=== PATIENT | female | born 1975 | race Caucasian/White ===

== ENCOUNTER 2019-06-05 08:00 | Outpatient (CLI) | payer MEDICAID ==
[~2019-06-05] VITALS: Ht 170.2 cm; Wt 93.4 kg
[~2019-06-05 08:00] MED LIST: CHLO25TA2 PO; CLON-473 PO; HYDR50CA PO; IBUP-860 PO; LORA-269 PO; OMEP20TA5 PO; POTA10TA19 PO; PRAZ5CAP PO; SUCR1TAB PO; TRAZ-256 PO; VAL5T PO; [UNRECOGNIZED DRUG - CODE] PO; albuterol 2.5 MG/3 ML nebule NEB ONE; cefazolin/dext.iso 2gm/100ml 100 ML IV ONE; famotidine 20mg tablet PO ONE; ringers solution, lacted 1,000 ML IV SCH
== END 2019-06-05 08:02 | disposition home or self-care (01) ==
LOC: PRE-OP 08:00 → EDSTATUS 06-20 07:30
PROVIDERS: ATTEND Surgery
DX: K44.9 Diaphragmatic hernia without obstruction or gangrene (principal)
CPT/HCPCS: J7120

== ENCOUNTER 2019-07-20 07:04 | Inpatient (IN) | payer MEDICAID ==
[2019-07-13 15:41] LABS: BASOPHILS % (AUTO) 0.5 % (0-1); EOSINOPHILS # (AUTO) 0.3 X10'3 (0-0.9); EOSINOPHILS % (AUTO) 4.2 % (0-6); LYMPHOCYTES # (AUTO) 2.5 X10'3 (1.1-4.8); LYMPHOCYTES % (AUTO) 34.2 % (21-51); MEAN CORPUSCULAR HEMOGLOBIN 28.6 PG (27.0-31.0); MEAN CORPUSCULAR HGB CONC 33.1 g/dL (33.0-36.5); MEAN CORPUSCULAR VOLUME 86.3 FL (78-98); MEAN PLATELET VOLUME 7.4 FL (7.4-10.4); MONOCYTES # (AUTO) 0.4 X10'3 (0-0.9); MONOCYTES % (AUTO) 4.8 % (2-12); NEUTROPHILS # (AUTO) 4.2 X10'3 (1.8-7.7); NEUTROPHILS % (AUTO) 56.3 % (42-75); PRE OP HEMATOCRIT 43.7 % (35.0-45.0); PRE OP HEMOGLOBIN 14.5 g/dL (12.0-16.0); PRE OP PLATELET COUNT 285 X10'3 (140-440); RED BLOOD COUNT 5.06 X10'6 (4.20-5.60); RED CELL DISTRIBUTION WIDTH 14.8 % (11.5-14.5)
[2019-07-13 16:01] LABS: ALBUMIN 3.7 G/DL (3.4-5.0); ALBUMIN/GLOBULIN RATIO 1.1 (1.1-1.5); ALKALINE PHOSPHATASE 80 IU/L (46-116); BLOOD UREA NITROGEN 8 MG/DL (7-18); BUN/CREATININE RATIO 11.9 (6.6-38.0); CALCIUM 8.8 MG/DL (8.5-10.1); CHLORIDE 104 MMOL/L (99-107); CREATININE 0.67 MG/DL (0.40-0.90); PRE OP ALT 30 U/L (30-65); PRE OP ANION GAP 8 (8-16); PRE OP AST 18 U/L (10-37); PRE OP BILIRUB, TOTAL 0.2 MG/DL (0.0-1.0); PRE OP GLUCOSE 131 MG/DL (70-104); PRE OP SODIUM 139 MMOL/L (135-145); TOTAL CARBON DIOXIDE 26.6 MMOL/L (24-32); TOTAL PROTEIN 7.1 G/DL (6.4-8.2); eGFR > 90 ML/MIN
[2019-07-20] VITALS (10 sets, daily range): BP systolic 109–177; BP diastolic 78–108
[~2019-07-20] VITALS: Ht 170.2 cm; Wt 99.8 kg
[~2019-07-20 07:04] MED LIST changes: +BUPIVACAINE liposomal/PF 13.3 MG/ML vial IM ONE; +BUPIVAcaine/PF 2.5 mg/ml (0.25%) 30ml vial ONE; +BUPIVAcaine/PF 2.5mg/ml (0.25%) 10ml vial ONE; -CHLO25TA2 PO; +GABA300C PO; -IBUP-860 PO; +LIDOcaine 1% 30ml preserv. free vial ONE; -SUCR1TAB PO; -albuterol 2.5 MG/3 ML nebule NEB ONE; +ceFAZolin 2gm in dextrose, iso 50 ML IV ONE; -cefazolin/dext.iso 2gm/100ml 100 ML IV ONE
[2019-07-20] MEDS ORDERED: fentaNYL/PF 50MCG/1 ML 2ML syringe IV PRN ×2 (07:15)
[2019-07-20] MEDS ORDERED: hydrALAZINE 20mg/ml inj. IV PRN (07:15)
[2019-07-20] MEDS ORDERED: morphine 2 MG/ML inj. syringe IV PRN (07:15)
[2019-07-20] MEDS ORDERED: ondansetron/PF 4mg/2ml inj IV PRN ×2 (07:15→11:35)
[2019-07-20] MEDS ORDERED: ringers solution, lacted 1,000 ML IV SCH (07:15)
[2019-07-20] MEDS ORDERED: MIDAZolam 5mg/ml 2ml vial IV PRN (07:50)
[2019-07-20] MEDS ORDERED: sevoflurane 250ml liquid IH ONE (09:22)
[2019-07-20] MEDS ORDERED: dexamethasone sod phosphate 10mg/ml inj ONE (09:22)
--- NOTE | 2019-07-20 09:24 | NUR ---
RT paged at 0747 for tx in rm 247A, RT arrived at 0750 to give tx. Reported to RN that there was no order for the svn tx. RN called pharmacy re faxed orders and asked that svn tx be put in. I waited for 5 minutes for order to pop up before stating i would be back when order came through. Order not put in until 904. SVN tx was then given. Addendum: 07/20/19 at 09 by Melony Machuca RT Amended: Links added.
[2019-07-20] MEDS ORDERED: midazolam 2 mg/2 ml injection ONE ×2 (09:25)
[2019-07-20] MEDS ORDERED: propofol inj 20 ML IV ONE (09:25)
[2019-07-20] MEDS ORDERED: LIDOcaine 2% (20mg/ml) 5ml vial ONE (09:25)
[2019-07-20] MEDS ORDERED: fentaNYL/PF 50MCG/1 ML 2ML syringe ONE (09:25)
[2019-07-20] MEDS ORDERED: rocuronium 10mg/ml inj IV ONE ×2 (09:26→10:59)
[2019-07-20] MEDS ORDERED: ondansetron/PF 4mg/2ml inj ONE (09:38)
[2019-07-20] MEDS ORDERED: glycopyrrolate 0.2mg/ml inj ONE (09:38)
[2019-07-20] MEDS ORDERED: labetalol 20mg/4ml (5mg/ml) syringe IV ONE (10:02)
[2019-07-20] MEDS ORDERED: naloxone 0.4 mg/ml inj IV PRN (11:35)
[2019-07-20] MEDS ORDERED: CADD PCA waste documentation MC PRN (11:35)
--- NOTE | 2019-07-20 11:36 | NUR ---
Received from OR via SURGICAL BED , accompanied by Anesthesiologist OFELIA and report given by Anesthesiolgist. PATIENT WITH 20G PIV IN LEFT UE RUNNING LR AT 100. PATIENT MEDICATED FOR PAIN AND NAUSEA UPON ARRIVAL . MINIMAL EMEMSIS PRESENT. PATIENT WITH 10L MASK ON WITH 99% SATURATIONS. 4 ABDOMINAL LAP SITES PRESENT AND CDI. NO DRESSING Addendum: 07/20/19 at 1154 by Gab Gonzalez RN, RN Amended: Links added.
[2019-07-20] MEDS ORDERED: LORazepam 0.5 MG tablet PO PRN (11:40)
[2019-07-20] MEDS: morphine 4 MG/ML inj SYRINge IV PRN ×2 (11:40→11:57)
[2019-07-20] MEDS ORDERED: hydrOXYzine 25 MG tablet PO PRN (11:55)
[2019-07-20] MEDS ORDERED: cloNIDine 0.1 mg tablet PO SCH (12:00)
[2019-07-20] MEDS: labetalol 20mg/4ml (5mg/ml) syringe IV PRN ×2 (12:03→12:22)
[2019-07-20] MEDS: HYDROmorphone/NS 1 mg/ml CADD 50 ML IV SCH ×7 (12:27→23:00)
--- NOTE | 2019-07-20 12:35 | NUR ---
Patient in room PAS IN 900. I have received report from NARCISA De Guzman and had the opportunity to ask questions and assume patient care.
--- NOTE | 2019-07-20 12:46 | NUR ---
Patient has met criteria for transfer to floor. Patient vss. Pain at a tolerable level. Transferred via bed to room where they were hooked to vitals and RN notified patient has arrived. Bed low, call light within reach, 2-3 rails up, vss, belongings placed in room. Care turned over to NARCISA ORTIZ. NOTIFIED RN PATIENT HAS ARRIVED. Addendum: 07/20/19 at 1309 by Gab Alicea - NARCISA RN Amended: Links added.
[2019-07-20] MEDS: gabapentin 300mg capsule PO SCH ×2 (14:15→21:00)
[2019-07-20] MEDS ORDERED: normal saline 1000ml 1,000 ML IV SCH (15:10)
[2019-07-20] MEDS: ceFAZolin inj. 1,000 MG in dextrose 5%-water 50ml 50 ML IV SCH (16:44)
--- NOTE | 2019-07-20 18:43 | NUR ---
Problems reprioritized. Patient report given, questions answered & plan of care reviewed with [place]. Pt resting comfortably, up to commode x3. Tolearated Liquids well. NO c/o nausea or discomfort. Laps sites clean and intact.
--- NOTE | 2019-07-20 18:49 | NUR ---
Patient in room CODEY 346. I have received report from Muriel BREWSTER and had the opportunity to ask questions and assume patient care.
[2019-07-20] MEDS ORDERED: diazepam 5mg tablet PO SCH (21:00)
[2019-07-20] MEDS ORDERED: traZODone 150mg tablet PO SCH (21:00)
[2019-07-20] MEDS ORDERED: prazosin 5mg capsule PO SCH (21:00)
[2019-07-21] VITALS: BP 133/50
[2019-07-21] MEDS: ceFAZolin inj. 1,000 MG in dextrose 5%-water 50ml 50 ML IV SCH ×2 (00:40→08:18)
[2019-07-21] MEDS: HYDROmorphone/NS 1 mg/ml CADD 50 ML IV SCH ×3 (01:00→05:00)
--- NOTE | 2019-07-21 01:00 | NUR ---
Patient took one mini-press only. Refused second pill.
[2019-07-21] MEDS ORDERED: albuterol 2.5 MG/3 ML nebule NEB ONE (05:30)
--- NOTE | 2019-07-21 06:49 | NUR ---
Patient in room CODEY 346. I have received report from NARCISA Longoria and had the opportunity to ask questions and assume patient care.
[2019-07-21] MEDS ORDERED: pantoprazole 40mg Tablet.DR PO SCH (07:30)
[2019-07-21 08:00] VITALS: BP 123/72
[2019-07-21] MEDS ORDERED: oxyCODONE/APAP 5-325mg tablet PO PRN ×2 (08:00)
[2019-07-21] MEDS: gabapentin 300mg capsule PO SCH (08:18)
[2019-07-21] MEDS ORDERED: PER5325T PO (10:10)
--- NOTE | 2019-07-21 12:14 | NUR ---
Pt D/C'd home per Dr Lozano in stable condition. PIV and Tele removed. medication and discharge instruction given to pt. No c/o pain or abdominal discomfort. Pt was escorted to main lobby on w/c. left the hospital via private vehicle accompanied by family.
== END 2019-07-21 11:40 | disposition home or self-care (01) | DRG 220 ==
LOC: PAS IN 07:04 → EDSTATUS 09:00 → SUR 3N 14:00
PROVIDERS: ADMIT Surgery; ATTEND Surgery
PROC: 8E0W4CZ Robotic Assisted Procedure of Trunk Region, Percutaneous Endoscopic Approach (ICD-10-PCS; 2019-07-20)
PROC: 0BUT4JZ Supplement Diaphragm with Synthetic Substitute, Percutaneous Endoscopic Approach (ICD-10-PCS; principal; 2019-07-20 09:22)
DX: K44.9 Diaphragmatic hernia without obstruction or gangrene (principal); F17.210 Nicotine dependence, cigarettes, uncomplicated; F41.8 Other specified anxiety disorders; F43.10 Post-traumatic stress disorder, unspecified; K21.9 Gastro-esophageal reflux disease without esophagitis; I10 Essential (primary) hypertension; Z98.51 Tubal ligation status; Z90.710 Acquired absence of both cervix and uterus; Z88.8 Allergy status to other drugs, medicaments and biological substances; Z79.899 Other long term (current) drug therapy
CPT/HCPCS: 36415; 71045; 80053; 82948; 85025; 86885; 86900; 86901; 87081; 87635; 93005; 94640; 94760; A4215; A4618; A6258; C1758; C1781; C9290; G0378; J0690; J1100; J1170; J2001; J2250; J2270; J2405; J2704; J3010; J3490; J7030; J7060; J7120

== ENCOUNTER 2020-05-07 09:13 | Day surgery (SDC) | payer MEDICAID ==
[~2020-05-07] VITALS: Ht 172.7 cm; Wt 95.5 kg
[~2020-05-07 09:13] MED LIST changes: -BUPIVACAINE liposomal/PF 13.3 MG/ML vial IM ONE; -BUPIVAcaine/PF 2.5 mg/ml (0.25%) 30ml vial ONE; -BUPIVAcaine/PF 2.5mg/ml (0.25%) 10ml vial ONE; +DIAZ5TAB22 PO; -LIDOcaine 1% 30ml preserv. free vial ONE; +PER5325T PO; -VAL5T PO; -ceFAZolin 2gm in dextrose, iso 50 ML IV ONE; -famotidine 20mg tablet PO ONE; -ringers solution, lacted 1,000 ML IV SCH
[2020-05-07 09:24] VITALS: BP 138/94
[2020-05-07] MEDS ORDERED: HYOS-13 PO (09:46)
[2020-05-07] MEDS ORDERED: TOPI25TA49 PO (09:47)
[2020-05-07] MEDS ORDERED: GABA300C PO (09:47)
[2020-05-07] MEDS ORDERED: OMEP20TA23 PO (09:48)
[2020-05-07] MEDS ORDERED: PRAZ5CAP PO (09:49)
[2020-05-07] MEDS ORDERED: TRAZ300T2 PO (09:50)
[2020-05-07] MEDS ORDERED: POTA10CA44 PO (09:50)
[2020-05-07] MEDS ORDERED: TIZA4CAP PO (09:51)
[2020-05-07] MEDS ORDERED: DIAZ10TA4 PO (09:51)
[2020-05-07] MEDS ORDERED: IBUP-1984 PO (09:52)
[2020-05-07] MEDS ORDERED: fentaNYL/PF 50MCG/1 ML 2ML syringe ONE ×2 (10:12→10:58)
[2020-05-07] MEDS ORDERED: LIDOcaine Viscous 15ml cup ONE (10:12)
[2020-05-07] MEDS ORDERED: MIDAZolam 1 MG/ML 5ML VIAL ONE ×2 (10:12→10:58)
[2020-05-07 11:16] VITALS: BP 88/55
[2020-05-07 11:26] VITALS: BP 108/77
[2020-05-07 11:36] VITALS: BP 112/76
[2020-05-07 11:46] VITALS: BP 127/96
== END 2020-05-07 12:05 | disposition home or self-care (01) ==
LOC: GI LAB 09:13
PROVIDERS: ATTEND Internal Medicine Gastroenterology
DX: R10.9 Unspecified abdominal pain (principal); K52.9 Noninfective gastroenteritis and colitis, unspecified; K21.9 Gastro-esophageal reflux disease without esophagitis; K57.30 Diverticulosis of large intestine without perforation or abscess without bleeding; K64.8 Other hemorrhoids; K44.9 Diaphragmatic hernia without obstruction or gangrene; K31.89 Other diseases of stomach and duodenum; F17.210 Nicotine dependence, cigarettes, uncomplicated; Z88.8 Allergy status to other drugs, medicaments and biological substances; Z79.899 Other long term (current) drug therapy
CPT/HCPCS: 43239; 45380; 99152; 99153; J2250; J3010; J7040; A4620

== ENCOUNTER 2024-09-06 20:22 | Inpatient (IN) | payer MEDICAID ==
[~2024-09-06] VITALS: Ht 170.2 cm; Wt 93.2 kg
[~2024-09-06 20:22] MED LIST changes: -CLON-473 PO; +DIAZ10TA4 PO; -DIAZ5TAB22 PO; -HYDR50CA PO; +HYOS-13 PO; +IBUP-1984 PO; -LORA-269 PO; +OMEP20TA23 PO; -OMEP20TA5 PO; -PER5325T PO; +POTA10CA95 PO; -POTA10TA19 PO; +TIZA4CAP PO; +TOPI-255 PO; -TRAZ-256 PO; +TRAZ300T2 PO; -[UNRECOGNIZED DRUG - CODE] PO
[2024-09-06] MEDS ORDERED: heparin 10,000 units/1 ML INJ IV ONE (21:05)
[2024-09-06] MEDS ORDERED: heparin 10,000 units/1 ML INJ IV PRN (21:05)
[2024-09-06 21:15] LABS: MEAN PLATELET VOLUME 7.2 FL (7.4-10.4); RED CELL DISTRIBUTION WIDTH 14.4 % (11.5-14.5)
[2024-09-06] MEDS: hydrALAZINE 20mg/ml inj. IV ONE (21:16)
[2024-09-06] MEDS: heparin 25,000 UNIT/250ml bag 250 ML IV PRN (21:20)
[2024-09-06 21:25] LABS: CREATININE 2.27 MG/DL (0.40-0.90); TOTAL CARBON DIOXIDE 23.6 MMOL/L (24-32); eCRCL 29 ML/MIN; eGFR 23 ML/MIN
[2024-09-06 21:29] LABS: APTT 69 SECONDS (22-32); INR 1.1 INR
--- NOTE | 2024-09-06 21:36 | Physician Documentation ---
History of Present Illness ~ Chief Complaint: Chest Pain Stated Complaint: NSTEMI Time Seen by MD: 21:03 Mode of Arrival: EMS HPI Patient presents to the emergency room as a transfer from [facility] for NSTEMI. She is on a heparin drip. Patient has been experiencing vomiting over the past few days and went to the emergency room two days ago and evaluated at that time with negative troponins for nausea and vomiting. She had one day of no nausea or vomiting then returned to the emergency room today for continued vomiting. She endorse chest pain today and troponin ended up being mildly positive. Patient does endorse cannabis use. Haldol administered with the fact however she continues to have some nausea here in the emergency room. She was also found to be in acute kidney injury Medication Reconciliation Allergies: Coded Allergies: niacin (Unverified Allergy, Severe, THROAT CLOSES, 05/15/19) indomethacin (Unverified Adverse Reaction, Intermediate, MIGRAINE, 05/15/19) Scheduled Diazepam (Diazepam), 1 TAB PO QHS, (Reported) Gabapentin (Neurontin), 1 CAP PO Q8H, (Reported) Hyoscyamine Sulfate (Hyoscyamine Sulfate), 2-Chaz TAB PO Q4H, (Reported) Omeprazole Magnesium (Prilosec Otc), 40 MG PO DAILY, (Reported) Potassium Chloride* (Potassium Chloride*), 1 CAP PO DAILY, (Reported) Prazosin Hcl (Minipress), 6 MG PO HS, (Reported) Tizanidine Hcl (Zanaflex), 1 CAP PO QHS, (Reported) Topiramate (Topiramate), 1 TAB PO TID, (Reported) Trazodone HCl (Trazodone HCl), 1 TAB PO HS, (Reported) Miscellaneous Medications Ibuprofen* (Motrin*), 1 TAB PO, (Reported) Review of Systems ROS All review of systems negative except as per HPI Physical Exam Vital Signs: Temperature: 98.6, Source: Oral, Heart Rate: 78, Respiratory Rate: 18, BP: 196/110, Pulse Oximetry: 95, Weight: 93.180 Physical Exam General: Patient is awake, alert, oriented x4 in no acute distress Head: Normocephalic and atraumatic. Eyes: Conjunctival normal. EOMI. PERRL. ENT: Mucous membranes moist. Neck: Supple, trachea is midline. Chest: Clear to auscultation bilaterally without rales, rhonchi, or wheezes. There is no accessory muscle use or retractions. Cardiac: RRR without murmurs, gallops, or rubs. Abd: Soft, nondistended, nontender, with normoactive bowel sounds. No guarding, rebound, or rigidity. Extremities: Normal strength. Normal range of motion. No deformities or edema. No calf tenderness to palpation Progress Results/Orders Results/Orders Orders - RIVERA THEODORE MD Heparin 25,000 Unit/250ml Bag (Heparin 2 (09/06/24 21:05) Heparin 10,000 Unit/Ml 1ml (Heparin 10,0 (09/06/24 21:05) Cbc/Diff (09/07/24 03:00) Cbc/Diff (09/08/24 03:00) Cbc/Diff (09/09/24 03:00) Cbc/Diff (09/10/24 03:00) Cbc/Diff (09/11/24 03:00) Cardiac Ptt (09/07/24 01:15) Page Hospitalist (09/06/24 21:47) Fill Out Med Reconciliation (09/06/24 21:47) Lorazepam Inj (Ativan Inj) (09/06/24 21:55) Ondansetron Inj. (Zofran 4mg/2ml Vial) (09/06/24 21:55) Completed Orders - RIVERA THEODORE MD Pt Inr (09/06/24 21:03) PTT (09/06/24 21:03) Cbc/Diff (09/06/24 21:03) BMP (09/06/24 21:05) Hs Troponin I W Calculations (09/06/24 21:05) Hydralazine Inj. (Apresoline Inj.) (09/06/24 21:10) Message To Nursing (09/06/24 21:15) Medications Received in ER Medications (Trade) Dose Ordered Sig/Kyrie Route PRN Reason Start Time Stop Time Status Last Admin Dose Admin Heparin Sodium/ Dextrose 250 ml @ 10 mls/hr Q25H PRN IV TO MAINTAIN PTT WITHIN RANGE 09/06/24 21:05 09/06/24 21:20 10 MLS/HR (Apresoline inj.) 10 mg ONCE ONCE IV 09/06/24 21:10 09/06/24 21:11 DC 09/06/24 21:16 10 MG Vital Signs 09/06/24 09/06/24 09/06/24 20:38 20:49 21:16 Temp 98.6 Pulse 79 78 Resp 20 18 B/P (MAP) 182/110 Pulse Ox 95 Laboratory Tests Test 09/06/24 21:10 White Blood Count 13.6 H Red Blood Count 5.42 Hemoglobin 15.4 Hematocrit 44.7 Mean Corpuscular Volume 82.5 Mean Corpuscular Hemoglobin 28.4 Mean Corpuscular Hemoglobin Concent 34.4 Red Cell Distribution Width 14.4 Platelet Count 336 Mean Platelet Volume 7.2 L Neutrophils (%) (Auto) 87.6 H Lymphocytes (%) (Auto) 9.1 L Monocytes (%) (Auto) 3.0 Eosinophils (%) (Auto) 0 Basophils (%) (Auto) 0.3 Neutrophils # (Auto) 11.9 H Lymphocytes # (Auto) 1.2 Monocytes # (Auto) 0.4 Eosinophils # (Auto) 0.0 Basophils # (Auto) 0.0 CBC Comment Prothrombin Time 11.2 INR International Normalized Ratio 1.1 Activated Partial Thromboplast Time 69 H Coagulation Comments Sodium Level 137 Potassium Level 3.3 L Chloride Level 101 Carbon Dioxide Level 23.6 L Anion Gap 12 Blood Urea Nitrogen 32 H Creatinine 2.27 H Estimated GFR/1.73 m2 23 BUN/Creatinine Ratio 14.1 Glucose Level 144 H Calcium Level 8.5 Troponin I High Sensitivity 944 *H Albumin 4.3 Chemistry Comments EKG/XRAY/CT/US/VASC/MRI EKG : Additional Comment EKG interpreted by myself shows time of 2027, rate 80, sinus rhythm, normal axis, no ST changes Medical Decision Making Findings Patient presented to the emergency room as transfer from alternative facility for NSTEMI on heparin drip. Patient also found to be in renal failure. Significant nausea and vomiting over the past few days. Consideration of cyclic vomiting syndrome. She continues to have some nausea. Fluid resuscitation has been implemented. We will admit for continued treatment and possible intervention. Differential Dx:Considerations: Include: angina, aortic dissection, chest wall pain, CHF, costochondritis, esophageal reflux/spasm, myocardial infarction, pericarditis Departure Admitted to Inpatient Unit: yes, to hospitalist Impression: Primary Impression: NSTEMI (non-ST elevated myocardial infarction) Additional Impressions: Uncontrolled hypertension Vomiting Acute kidney injury Condition: Guarded Referrals: NO PRIMARY CARE PROVIDER (PCP) Critical Care Note Total Time (mins): 45 Critical Care Note The very real possibility of a deterioration of this patient's condition required the highest level of my preparedness for sudden, emergent intervention. I provided critical care services, which included medication orders, frequent reevaluations of the patient's condition and response to treatment, ordering and reviewing test results, and discussing the case with various consultants. Excludes time spent performing separately billable procedures. The critical care time associated with the care of the patient was 45 minutes not counting procedures Signature Scribe Signature: No scribe Attestation: The note accurately reflects work and decisions made by me.Rivera Theodore MD 09/06/24 21:47 RIVERA THEODORE MD Sep 06, 2024 21:35
[2024-09-06] MEDS: MESSAGE TO NURSING IV ONE (22:10)
[2024-09-06] MEDS: ondansetron/PF 4mg/2ml inj IV ONE (22:13)
[2024-09-07] VITALS (9 sets, daily range): BP systolic 97–169; BP diastolic 59–100; PULSE 81–103; RESP 16–24; TEMP 97.1–98.2; O2SAT 94–98
[2024-09-07] MEDS ORDERED: mag hydrox/Alum hydrox/simeth 30ml oral suspension PO PRN (00:50)
[2024-09-07] MEDS ORDERED: HYDROcodone/acetaminophen 10/325mg tab PO PRN (00:50)
[2024-09-07] MEDS: normal saline 1000ml 1,000 ML IV SCH (00:50)
[2024-09-07] MEDS ORDERED: magnesium sulf-water 2g/50mL 50 ML IV PRN (00:50)
[2024-09-07] MEDS ORDERED: magnesium sulf-water 4G/100mL 100 ML IV PRN (00:50)
[2024-09-07] MEDS ORDERED: magnesium Cl slow-release 64mg tablet PO PRN (00:50)
[2024-09-07] MEDS ORDERED: potassium Cl 40MEQ/1/2NS 520ml 520 ML IV PRN (00:50)
--- NOTE | 2024-09-07 01:19 | HISTORY AND PHYSICAL-Residence ---
History & Physical Providers to CC Resident Creating Document: IRENE SANDOVAL RES ~ History of Present Illness Reason for Admit\Complaint: nstemi History of Present Illness Attestation I agree with the residents assessment and plan as below: Plan: continue dual antiplatelet therapy continue heparin infusion trend trop low dose metoprolol cardiology consultation CCT 55 min using HIPPA compliant A/V technology 48-year-old female with a history of fibromyalgia, PTSD, irritable bowel syndrome his transfers from [facility] for further management of NSTEMI. She complains of nausea and vomiting since Wednesday. She is unable to keep anything down due to the vomiting. Also has associated chest pain, diarrhea, chills, dizziness, palpitations since earlier today. Retrosternal chest pain radiating to the entire chest, and her back. Cramping type of pain 7/10 in intensity. States nausea and vomiting better now. Stopped smoking three years ago and last drink was in March 2024. Uses edibles for fibromyalgia pain. Lives with her boyfriend in [place]. Follows up with PCP Dr. 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 Discussed advanced care directives and she wishes to be a full code. Allergies: Coded Allergies: niacin (Unverified Allergy, Severe, THROAT CLOSES, 05/15/19) indomethacin (Unverified Adverse Reaction, Intermediate, MIGRAINE, 05/15/19) Home Medications Home Medications Active Reported Motrin* (Ibuprofen) 400 Mg Tablet 1 Tab PO 5 Days Zanaflex (Tizanidine HCl) 4 Mg Capsule 1 Cap PO QHS Diazepam 10 Mg Tablet 1 Tab PO QHS Potassium Chloride* (Potassium Chloride) 10 Meq Capsule.sa 1 Cap PO DAILY Trazodone HCl 300 Mg Tablet 1 Tab PO HS Minipress (Prazosin Hcl) 5 Mg Capsule 6 Mg PO HS Prilosec Otc (Omeprazole Magnesium) 20 Mg Tablet.dr 40 Mg PO DAILY Topiramate 25 Mg Tablet 1 Tab PO TID Neurontin (Gabapentin) 300 Mg Capsule 1 Cap PO Q8H Hyoscyamine Sulfate 0.125 Mg Tab.rapdis 2-Chaz Tab PO Q4H Past Medical History Past Medical History Fibromyalgia PTSD Depression Irritable bowel Past Surgical History Surgical History Comment section Hysterectomy Bladder lift Morgagni hernia repair ROS ROS Reviewed in full. All negative except for pertinent positive HPI. Exam Vitals: Vital Signs Date Time Temp Pulse Resp B/P (MAP) Pulse Ox O2 Delivery O2 Flow Rate FiO2 09/06/24 23:00 96 20 161/92 (115) 97 09/06/24 21:30 98.6 General: General: Awake and Alert, mild acute distress. HEENT: Face is flushed, Conjunctiva pink, Sclera clear, Mucus Membranes dry Neck: Supple without masses and tenderness. Resp: Unlabored. Equal breath sounds bilaterally. Heart: Regular rhythm, normal S1 and S2, no rub, murmur or gallop. Abdomen: Soft and non tender no organomegaly. Normal bowel sounds x4 quadrant normoactive. No guarding or rigidity. Extremities: Normal ROM, no swelling, nontender. No cyanosis,clubbing or edema. 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 Skin: Warm and Dry. Diagnostic Data Last Recorded Lab Results: 09/06/[id number]/06/[id number] Diagnostic Data: Laboratory Tests Test 09/06/24 21:10 Prothrombin Time 11.2 SECONDS (9.0-12.0) INR International Normalized Ratio 1.1 INR Activated Partial Thromboplast Time 69 SECONDS (22-32) H Coagulation Comments Advance Care Planning Advanced Care plannin - 30 Minutes Additional Plan 48-year-old female with a history of fibromyalgia, PTSD, irritable bowel syndrome his transfers from [facility] for further management of NSTEMI. NSTEMI EKG: No ST/T-wave changes Patient complains of retrosternal cramping type of chest pain 7/10 in intensity Elevated troponins, 944, follow up with troponin trend On the heparin drip times 48 hours Blood pressures have been high, started metoprolol succinate 25 p.o. daily Started aspirin and statin, Follow up with A1c, lipid panel, procalcitonin, echo Consider cardiology consult in a.m. MATT Dehydration secondary to nausea and vomiting Follow up with UA Continue IV fluid resuscitation NS at 100 mL/hour Hypokalemia, replacement per protocol History of fibromyalgia History of PTSD History of depression History of irritable bowel Awaiting med rec Code Status: Full code DVT prophylaxis: Heparin Analgesia/sedation: Morphine/[place] Line/tube: PIV GI prophylaxis: None Nutrition: Heart healthy Prognosis: Guarded Disposition: Continue medical management. Irene Sandoval MD. IM Resident PGY-3 Date of Service: Sep 07, 2024 Billing Provider: CAITIE STEVENSON MD, ELIZABETH, RES Sep 07, 2024 01:19 CAITIE STEVENSON MD Sep 07, 2024 05:01
[2024-09-07 01:50] LABS: MEAN PLATELET VOLUME 7.6 FL (7.4-10.4); RED CELL DISTRIBUTION WIDTH 14.3 % (11.5-14.5)
[2024-09-07 02:12] LABS: PRO BRAIN NATRIURETIC PEPTIDE 2266.0 PG/ML (0-125)
[2024-09-07] MEDS ORDERED: heparin 25,000 UNIT/250ml bag 250 ML IV PRN (02:40)
[2024-09-07] MEDS: metoprolol succinate 25mg (24-HOUR) SR. Tablet PO SCH (02:42)
[2024-09-07] MEDS: heparin, porcine 5000 units/ml vial IV ONE (02:42)
[2024-09-07] MEDS: aspirin 81mg, enteric-coated 1 TAB TABLET.DR PO SCH (02:52)
[2024-09-07] MEDS: hydrALAZINE 20mg/ml inj. IV PRN (05:33)
--- NOTE | 2024-09-07 06:07 | ELECTROCARDIOGRAPH REPORT ---
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
[2024-09-07] MEDS: K and/or MAG REPLACEMENT MC SCH (08:16)
[2024-09-07] MEDS: ondansetron/PF 4mg/2ml inj IV PRN (08:23)
[2024-09-07] MEDS: PERFLUTREN PROTEIN-A MICROSPHR (Optison) 0.22 MG/ML 3ML VIAL IV ONE (10:45)
[2024-09-07] MEDS: potassium Cl 20 mEq SR tablet PO PRN (11:02)
[2024-09-07] MEDS: heparin 10,000 units/1 ML INJ IV PRN (12:02)
[2024-09-07] MEDS: MESSAGE TO NURSING IV ONE ×3 (12:12→23:35)
[2024-09-07 15:29] LABS: LEUKOCYTE ESTERASE ,URINE SMALL (Neg); NITRITES, URINE NEGATIVE (Neg); OCCULT BLOOD,URINE TRACE-INTACT (Neg)
[2024-09-07 15:36] LABS: UA COLLECTION TYPE OTHER
[2024-09-07 15:37] LABS: SQUAMOUS EPITHELIAL CELL,UR MODERATE /LPF (FEW)
[2024-09-07 15:38] LABS: WBC CLUMPS,URINE FEW /HPF (NEGATIVE)
[2024-09-07 15:47] LABS: URINE AMPHETAMINE SCREEN NEGATIVE (Neg); URINE BARBITUATE SCREEN NEGATIVE (Neg); URINE BENZODIAZEPINES SCREEN POSITIVE (Neg); URINE CANNABINOID SCREEN POSITIVE (Neg); URINE COCAINE SCREEN NEGATIVE (Neg); URINE METHADONE SCREEN NEGATIVE (Neg); URINE OPIATE SCREEN POSITIVE (Neg); URINE PHENCYCLIDINE SCREEN NEGATIVE (Neg)
[2024-09-07 16:50] LABS: APTT > 139 SECONDS (22-32)
[2024-09-07 17:13] LABS: HCG SERUM QL NEGATIVE
--- NOTE | 2024-09-07 18:40 | CONSULTATION REPORT ---
Cardiac Consultation Report Providers to CC ~ Subjective Subjective Cardiology consultation: 48-year-old female was transferred here for recurrent nausea and vomiting and minimal troponin rise. Troponins have remained stable around 0.6. He is asymptomatic on heparin infusion. Tox screen was positive for opiates. I noticed that her creatinine is 2.27 and she tells me that she has trialed [facility]cutt kidney under development as her mother was drug addicted. She denies any angina pectoris. Medications include diazepam Neurontin which she no longer takes hi Ios hyoscyamine Prilosec potassium chloride prazosin tizanidine topiramate trazodone summary switch to Cymbalta. Allergies niacin and indomethacin. Objective Vitals Vital Signs Date Time Temp Pulse Resp B/P (MAP) Pulse Ox O2 Delivery O2 Flow Rate FiO2 09/07/24 15:00 98.0 85 18 145/96 (112) 95 Room Air Lab Results: 09/07/24 0115 09/07/24 0115 Objective Carotid no bruit chest clear to auscultation percussion heart no murmur or S3 gallop no rub abdomen active bowel sounds no bruits pulses plus two upper and lower extremities. Oriented cooperative. Coagulation Studies Laboratory Tests Test 09/06/24 21:10 09/07/24 09:08 09/07/24 15:45 Prothrombin Time 11.2 SECONDS (9.0-12.0) INR International Normalized Ratio 1.1 INR APTT (Heparin Protocol) 27 SECONDS (45-60) L Activated Partial Thromboplast Time > 139 SECONDS (22-32) *H Coagulation Comments Other Results Electrocardiogram minor nonspecific ST-T changes. White blood count elevated 9[address]01 potassium low at 3.1. Problem\Assessment\Plan Additional Plan Impression nausea vomiting recurrent of indeterminate etiology no angina. Minimal troponin rise. Leukocytosis hypokalemia. Chronic renal insufficiency creatinine 2.27 at least stage IV perhaps stage 5 chronic kidney disease without any evaluation or follow-up. Recommendation 1. Discontinue heparin and observe 2. Echocardiography . I was told it was ordered not yet performed 3. Lexiscan to evaluate for ischemia 4. Continue home psychotropic medications pain medications control blood pressure at beta-michael as needed. 5. Ambulate freely and hallway. Comment: If has reversible ischemia then it is not unreasonable to perform diagnostic coronary angiography and take the risk of acute renal failure with possible chronic renal failure in view of her abnormal kidney function. Since she is in the hospital she should at least have a renal ultrasound and if available a renal consultation she claims she has never had one CARLOS DANG MD Sep 07, 2024 18:40
[2024-09-07] MEDS ORDERED: metoprolol tartrate 1mg/ml inj IV PRN (18:50)
[2024-09-07] MEDS: prazosin 5mg capsule PO SCH (21:49)
--- NOTE | 2024-09-07 21:50 | PROGRESS NOTE- Residence ---
Progress Note - Resident Providers to CC Resident Creating Document: ELVIRA JUÁREZ RES ~ Antibiotic Timeout Antibiotic Ordered?: Yes Subjective This is a 48-year-old female with a history of fibromyalgia, PTSD, irritable bowel syndrome transfered from [facility] for further management of NSTEMI. Retrosternal chest pain radiating to the entire chest, and her back. Cramping type of pain 7/10 in intensity. She complains of nausea and vomiting since Wednesday. Also has associated chest pain, diarrhea, chills, dizziness, palpitations since earlier today. Follows up with PCP Dr. 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 Objective Vital Signs Date Time Temp Pulse Resp B/P (MAP) Pulse Ox O2 Delivery O2 Flow Rate FiO2 09/07/24 15:00 98.0 85 18 145/96 (112) 95 Room Air General: Awake and Alert, mild acute distress. HEENT: Face is flushed, Conjunctiva pink, Sclera clear, Mucus Membranes dry Neck: Supple without masses and tenderness. Resp: Unlabored. Equal breath sounds bilaterally. Heart: Regular rhythm, normal S1 and S2, no rub, murmur or gallop. Abdomen: Soft and non tender no organomegaly. Normal bowel sounds x4 quadrant normoactive. No guarding or rigidity. Extremities: Normal ROM, no swelling, nontender. No cyanosis,clubbing or edema. 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 Skin: Warm and Dry. Result Diagram: 09/07/24 0115 09/07/24 0115 Coagulation Studies Laboratory Tests Test 09/06/24 21:10 09/07/24 09:08 09/07/24 15:45 Prothrombin Time 11.2 SECONDS (9.0-12.0) INR International Normalized Ratio 1.1 INR APTT (Heparin Protocol) 27 SECONDS (45-60) L Activated Partial Thromboplast Time > 139 SECONDS (22-32) *H Coagulation Comments Assessment Assessment This is a 48-year-old female with a history of fibromyalgia, PTSD, irritable bowel syndrome transfered from [facility] for further management of NSTEMI. Plan Plan NSTEMI EKG: No ST/T-wave changes Patient complains of retrosternal cramping type of chest pain 7/10 in intensity Elevated troponins, 944, continue trending down and is in the 500s now Patient continues to be on her heparin drip. Blood pressures have been high, started metoprolol succinate 25 p.o. daily Started the patient on aspirin and statin, Echo has been ordered. MATT, undiagnosed CKD? Dehydration secondary to nausea and vomiting Patient's creatinine is 2.27, her baseline is unknown Ordered urine osmolality, serum osmolality ,urine sodium and urine urea Ordered ultrasound abdomen for the patient to reviewed. We will continue fluid resuscitation NS at 100 mL/hour Hypertension, new onset? Patient presented to the ED with a blood pressure of 182/110mmhg, which continued to decrease when his blood pressure is at 145/90 mmHg Started the patient on metoprolol 25mg OD UTI, uncomplicated Secondary to unknown source Her urine analysis showed Urinalysis pending leukocyte esterase was positive, WBC 30-50, Glucose 250H, nitrates were negative and ketones positive Patient's WBCs elevated at 13.5 Initiated her on Rocephin 1 gm IV. Urine culture pending Hypokalemia, Her potassium is 3.1 and replacement per protocol initiated. Code Status: Full code DVT prophylaxis: Heparin Line/tube: PIV GI prophylaxis: None Nutrition: Heart healthy Prognosis: Guarded Disposition: Patient is going to undergo a Lexiscan tomorrow. Antibiotics for her UTI has been started and we will continue to monitor ordered lab value Elvira Juárez MD. Internal medicine residency,PGY-1 Date of Service: Sep 07, 2024 Billing Provider: JESSE AVALOS MD, JAHNAVI, RES Sep 07, 2024 21:50
--- NOTE | 2024-09-07 23:27 | RADIOLOGY REPORT ---
INDICATION: CKD TECHNIQUE: Multiple real-time sonographic images of the kidneys and bladder were obtained. COMPARISON: None FINDINGS: RIGHT kidney measures 10.7 x 6.7 x 5.2 cm with normal parenchymal echotexture and cortical thickness. No hydronephrosis. LEFT kidney measures 10.2 x 6.5 x 4.9 cm with normal parenchymal echotexture and cortical thickness. No hydronephrosis. No large intraluminal masses are seen in the bladder. Post void residual was not evaluated. Left ureteral jet identified. Right ureteral jet not identified . IMPRESSION: 1. Unremarkable examination.
[2024-09-08] VITALS (16 sets, daily range): BP systolic 82–172; BP diastolic 44–107; PULSE 72–111; RESP 14–27; TEMP 97.4–97.9; O2SAT 92–96
[2024-09-08] MEDS: normal saline 1000ml 1,000 ML IV ONE ×2 (01:35)
[2024-09-08 02:17] LABS: ABG BASE EXCESS 0.4 mmol/L (-2.0-3.0); ABG HCO3 22.5 mmol/L (21.0-28.0); ABG OXYGEN SATURATION 98.6 % (94.0-98.0); ABG PCO2 (T) 28.5 mmHg (32.0-45.0); ABG PH (T) 7.513 (7.350-7.450); ABG PO2 (T) 103.4 mmHg (83.0-108.0); ALLEN'S TEST POSITIVE; FCOHb 1.0 % (0.5-1.5); FHHb 1.4 % (0.0-5.0); FIO2 32.0 mmHg/%; FLOW 3 L/min; FMetHb 0.3 % (0.0-1.5); FO2Hb 97.3 % (94.0-98.0); MODE NASAL CANNULA; PATIENT TEMPERATURE 36.4; TOTAL HEMOGLOBIN 13.3 G/dl (12.0-16.0)
--- NOTE | 2024-09-08 02:40 | RADIOLOGY REPORT ---
CHEST RADIOGRAPH Indication: cp Technique: Single frontal view of the chest was obtained COMPARISON: CHEST 1 VIEW on DOS: 09/06/24 FINDINGS: Lines and Tubes: None Lungs: Clear Pleura: No effusion. No pneumothorax. Cardiomediastinal contours: Unremarkable Bones: Unremarkable IMPRESSION: 1. No acute disease.
[2024-09-08] MEDS: CefTRIAXone/D5W-Rocephin 1gm 50 ML IV SCH (03:56)
[2024-09-08 07:04] LABS: MEAN PLATELET VOLUME 7.4 FL (7.4-10.4); RED CELL DISTRIBUTION WIDTH 13.9 % (11.5-14.5)
[2024-09-08 07:19] LABS: OSMOLALITY 276 MOSM/K (280-300)
[2024-09-08 07:25] LABS: CHOL/HDL RATIO 6.2 (0.00-4.99); CREATININE 1.16 MG/DL (0.40-0.90); LDL CHOLESTEROL 121 MG/DL (50-100); PHOSPHORUS 2.0 MG/DL (2.3-4.5); TOTAL CARBON DIOXIDE 24.4 MMOL/L (24-32); eCRCL 58 ML/MIN; eGFR 50 ML/MIN
[2024-09-08] MEDS: metoprolol succinate 25mg (24-HOUR) SR. Tablet PO SCH (08:00)
[2024-09-08] MEDS: pantoprazole 40mg Tablet.DR PO SCH (08:15)
[2024-09-08] MEDS: potassium Cl 20 mEq SR tablet PO PRN (08:26)
[2024-09-08] MEDS: Potassium Cl inj 40 MEQ in normal saline 500ml IV soln 500 ML IV ONE (08:27)
[2024-09-08] MEDS: normal saline 1000ml 1,000 ML IVB ONE (10:13)
[2024-09-08] MEDS: regadenoson 0.4mg/5ml syringe IV PRN (12:04)
[2024-09-08] MEDS ORDERED: aminophylline inj. 10 ML IV ONE (13:03)
[2024-09-08] MEDS: aminophylline 500mg/20ml vial IV PRN (13:12)
--- NOTE | 2024-09-08 14:51 | RADIOLOGY REPORT ---
CLINICAL INFORMATION: 48 years old, Female; nstemi. TECHNIQUE: 8.3 mCi of technetium 99m sestamibi was infused at rest. Rest SPECT imaging was obtained. Routine protocol for Lexiscan stress study was performed with 0.4 mg of Lexiscan. 32.0 mCi of techne tium 99m sestamibi was infused. Stress SPECT imaging was obtained. COMPARISON: None FINDINGS: Resting heart rate of 73 BPM increased to maximum rate of 110 BPM. Resting blood pressure o f 135/79, also 135/79 with stress. There were no significant ST-T wave EKG changes. There was no ches t pain. There is a moderate-sized focal area of moderate to severe diminished perfusion involving the basal i nferoseptal and basal inferior segments on the rest images, without corresponding defect on the stres s images, suggesting stress-induced ischemia. TID ratio is 1.41. Wall motion imaging appears normal. Calculated left ventricular ejection fraction is 73 %. IMPRESSION: 1. Perfusion defect involving the basal inferoseptal and basal inferior segments as described above, possible stress-induced ischemia. 2. Abnormal TID ratio of 1.41 suggesting transient ischemic dilatation. 3. Left ventricular ejection fraction is 73%.
--- NOTE | 2024-09-08 16:23 | PROGRESS NOTE- Residence ---
Progress Note - Resident Providers to CC Resident Creating Document: YUE LAWRENCE RES ~ Antibiotic Timeout Antibiotic Ordered?: Yes Subjective Patient was seen and examined bedside, no acute overnight symptoms. Did not complain of chest pain, nausea and vomiting today. Stress test today was positive, consulted Dr. Fraser. Objective Vital Signs Date Time Temp Pulse Resp B/P (MAP) Pulse Ox O2 Delivery O2 Flow Rate FiO2 09/08/24 12:38 97 16 134/78 94 Room Air 09/08/24 06:00 97.8 Result Diagram: 09/08/24 0606 09/08/24 06 Awake , alert, and oriented x4, resting comfortably in the bed, in no acute distress HEENT: Atraumatic, normocephalic, EOMI, anicteric sclera ; pink conjunctiva Neck: Trachea midline. Supple, full range of motion, no JVD Cardiac: Regular rhythm, regular rate with no murmurs all over the precordium. Respiratory: Equal breath sounds bilaterally, no tachypnea, no wheezing ,rub or rales, Chest wall is symmetric and without deformity. Gastrointestinal: Abdomen symmetric, non-distended, soft, non-tender, normal bowel sounds x4 quadrant, normoactive, no hepatosplenomegaly Musculoskeletal: No pedal edema, no cyanosis elt Neurological: Speech is clear, alert, and oriented x 4. No motor or sensory deficit, deep tendon reflexes normal, cerebellar intact. Cranial nerves II-XII intact. Skin: Warm and dry Coagulation Studies Laboratory Tests Test 09/06/24 21:10 09/07/24 15:45 09/08/24 06:06 Prothrombin Time 11.2 SECONDS (9.0-12.0) INR International Normalized Ratio 1.1 INR Activated Partial Thromboplast Time > 139 SECONDS (22-32) *H APTT (Heparin Protocol) 26 SECONDS (45-60) L Coagulation Comments Advance Care Planning Advanced Care plannin - 30 Minutes Assessment Assessment This is a 48-year-old female with a history of fibromyalgia, PTSD, irritable bowel syndrome transfered from [facility] for further management of NSTEMI. Plan Plan 1. NSTEMI (ELIZABETH score 3) Chest pain HEART Score: Total: 4 = Moderate risk Retrosternal chest pain radiating to back, cramping in nature, 7/10 intensity Troponins: Initial 944 now trending down in 500s EKG: No ST/T wave changes noted On heparin drip, aspirin 81 mg daily, atorvastatin 80 mg initiated, metoprolol succinate 25 mg daily Echocardiogram pending Plan: Lexiscan was done today which showed stress-induced ischemia, reversible defect Reconsulted Dr. Fraser, awaiting recommendations Continue heparin drip Monitor for chest pain recurrence or hemodynamic changes 2. Acute Kidney Injury probably prerenal, vasomotor nephropathy Creatinine: 2.27 mg/dL (baseline unknown), creatinine trended down to 1.1690 Likely pre-renal due to dehydration from vomiting and diarrhea No known CKD, but further evaluation pending Urine osmolality, serum osmolality, urine Na, and urine urea ordered Renal ultrasound unremarkable Plan: IV fluids: NS @ 100 mL/hr Monitor creatinine, BUN, and urine output Hold nephrotoxics Monitor for response with labs 3. Hypertension New Onset ED BP: 182/110 mmHg now 145/90 mmHg Started on Metoprolol Succinate 25 mg PO daily Plan: Monitor BP every shift Continue metoprolol Evaluate for secondary hypertension if persistent after stabilization Lifestyle counseling on discharge 4. Urinary Tract Infection Uncomplicated UA: +Leukocyte esterase, WBC 3050, Glucose 250 (likely spillover from transient hyperglycemia), Ketones +, Nitrates WBC: 13.5 Started on Ceftriaxone 1 g IV q24h Urine culture grew Gram-negative rods, final report pending Plan: Continue Rocephin until culture results available Consider de-escalation based on sensitivities Monitor for fever or flank pain 5. Hypokalemia (Mild) Potassium 3.1 on admission Likely secondary to vomiting and volume depletion Plan: Potassium today was 2.9, IV potassium therapy ordered Potassium chloride replacement per protocol 6. Neuropsychiatric History Known PTSD and migraine history, followed by psychologist and neurology [employer] No active suicidal ideation or hallucinations reported No current migraine episode noted Plan: Continue outpatient follow-up with psychiatry and neurology Monitor for anxiety-related somatic symptoms that could overlap with cardiac presentation Offer psychosocial support and consider anxiety screen if needed 7. Hyperlipidemia LDL 121, triglycerides 189 Initiated atorvastatin 80 mg today 8. Substance use disorder Positive for marijuana use, substance abuse navigator consulted Code Status: Full code DVT Prophylaxis: Heparin drip Line/tubes: P IV Nutrition: Heart healthy diet PT: Ordered Prognosis: Guarded Disposition: Awaiting Dr. Fraser's recommendation Yue Lawrence MD Internal Medicine Resident, PGY-2 Date of Service: Sep 08, 2024 Billing Provider: JESSE AVALOS MD, GAURAV, RES Sep 08, 2024 16:22
[2024-09-09] VITALS (9 sets, daily range): BP systolic 117–182; BP diastolic 82–111; PULSE 84–98; RESP 14–26; TEMP 97.2–98.2; O2SAT 94–98
[2024-09-09 05:35] LABS: MEAN PLATELET VOLUME 7.1 FL (7.4-10.4); RED CELL DISTRIBUTION WIDTH 13.9 % (11.5-14.5)
[2024-09-09 05:54] LABS: CREATININE 0.71 MG/DL (0.40-0.90); PHOSPHORUS 2.2 MG/DL (2.3-4.5); TOTAL CARBON DIOXIDE 23.4 MMOL/L (24-32); eCRCL 94 ML/MIN; eGFR 88 ML/MIN
[2024-09-09] MEDS ORDERED: POTASSIUM BICARB 20meq eff tab 20 MEQ TABLET.EFF PO PRN (10:20)
--- NOTE | 2024-09-09 17:16 | PROGRESS NOTE- Residence ---
Progress Note - Resident Providers to CC Resident Creating Document: ELVIRA JUÁREZ RES ~ Antibiotic Timeout Antibiotic Ordered?: Yes Subjective Patient was seen and examined bedside, patient complained of symptoms of headache and three episodes of emesis today. Stress test today was positive, consulted Cardiology waiting for their consult and recommendation. Objective Vital Signs Date Time Temp Pulse Resp B/P (MAP) Pulse Ox O2 Delivery O2 Flow Rate FiO2 09/09/24 15:00 97.4 94 14 158/92 (114) 96 Room Air Awake , alert, and oriented x4, resting comfortably in the bed, in no acute distress HEENT: Atraumatic, normocephalic, EOMI, anicteric sclera ; pink conjunctiva Neck: Trachea midline. Supple, full range of motion, no JVD Cardiac: Regular rhythm, regular rate with no murmurs all over the precordium. Respiratory: Equal breath sounds bilaterally, no tachypnea, no wheezing ,rub or rales, Chest wall is symmetric and without deformity. Gastrointestinal: Abdomen symmetric, non-distended, soft, non-tender, normal bowel sounds x4 quadrant, normoactive, no hepatosplenomegaly Musculoskeletal: No pedal edema, no cyanosis elt Neurological: Speech is clear, alert, and oriented x 4. No motor or sensory deficit, deep tendon reflexes normal, cerebellar intact. Cranial nerves II-XII intact. Skin: Warm and dry Result Diagram: 09/09/24 0514 09/09/24 1101 Coagulation Studies Laboratory Tests Test 09/06/24 21:10 09/07/24 15:45 09/08/24 06:06 Prothrombin Time 11.2 SECONDS (9.0-12.0) INR International Normalized Ratio 1.1 INR Activated Partial Thromboplast Time > 139 SECONDS (22-32) *H APTT (Heparin Protocol) 26 SECONDS (45-60) L Coagulation Comments Assessment Assessment This is a 48-year-old female with a history of fibromyalgia, PTSD, irritable bowel syndrome transfered from [facility] for further management of NSTEMI. Plan Plan 1. NSTEMI (ELIZABETH score 3) Chest pain HEART Score: Total: 4 = Moderate risk Retrosternal chest pain radiating to back, cramping in nature, 7/10 intensity Troponins: Initial 944 now trending down in 500s EKG: No ST/T wave changes noted On heparin drip, aspirin 81 mg daily, atorvastatin 80 mg initiated, metoprolol succinate 25 mg daily Echocardiogram pending Plan: Lexiscan was done today which showed stress-induced ischemia, reversible defect Waiting for Cardiology consult and recommendation Continue heparin drip Patient has no symptoms of chest pain today. 2. Acute Kidney Injury probably prerenal, vasomotor nephropathy Creatinine: 2.27 mg/dL (baseline unknown), creatinine trended down to 0.71 Likely pre-renal due to dehydration from vomiting and diarrhea No known CKD, but further evaluation pending Urine osmolality, serum osmolality, urine Na, and urine urea ordered,pending Renal ultrasound unremarkable Plan: DC the fluids today. Monitor creatinine, BUN, and urine output Hold nephrotoxics Monitor for response with labs 3. Hypertension New Onset ED BP: 182/110 mmHg now 145/90 mmHg Started on Metoprolol Succinate 25 mg PO daily Plan:Monitor BP every shift Continue metoprolol Evaluate for secondary hypertension if persistent after stabilization Lifestyle counseling on discharge 09/09/2024: Patient had complaints of headaches and increasing blood pressure to 180s, initiated on hydralazine 10mg p.r.n. Blood pressure was controlled for a while and again continue to increase, the blood pressure right now is 153/70mmhg,starting the patient on amlodipine 10mg today 4. Urinary Tract Infection Uncomplicated UA: +Leukocyte esterase, WBC 3050, Glucose 250 (likely spillover from transient hyperglycemia), Ketones +, Nitrates WBC: 13.5 Started on Ceftriaxone 1 g IV q24h Urine culture grew E coli which is sensitive to ceftriaxone 5. Hypokalemia (Mild) Potassium 3.1 on admission Likely secondary to vomiting and volume depletion Plan: Patient's potassium is 3.6 today Potassium chloride replacement per protocol if needed 6. Neuropsychiatric History Known PTSD and migraine history, followed by psychologist and neurology [employer] No active suicidal ideation or hallucinations reported No current migraine episode noted Plan: Continue outpatient follow-up with psychiatry and neurology Monitor for anxiety-related somatic symptoms that could overlap with cardiac presentation Offer psychosocial support and consider anxiety screen if needed 7. Hyperlipidemia LDL 121, triglycerides 189 Initiated atorvastatin 80 mg today 8. Substance use disorder Positive for marijuana use, substance abuse navigator consulted Code Status: Full code DVT Prophylaxis: Heparin drip Line/tubes: P IV Nutrition: Heart healthy diet PT: Ordered Prognosis: Guarded Disposition: Awaiting Dr. Fraser's recommendation Dr.Jahnavi Ericka MD Internal Medicine Resident, PGY-1 Date of Service: Sep 09, 2024 Billing Provider: JESSE AVALOS MD, JAHNAVI, RES Sep 09, 2024 17:16
--- NOTE | 2024-09-09 19:15 | CARDIOLOGY REPORT ---
APPROVED REPORT EXAM: Comprehensive 2D, Doppler, and color-flow Echocardiogram. Patient Location: 302 Blood Pressure: 145/96 mmHg Heart Rate: 80 bpm Indications NSTEMI Chest Pain Troponin: 944 Palpitations NO SEAT COVERS TRIMMER NO Previous ECHO 2D Dimensions LA Diam3.1 cm IVSd 1.3 (0.7-1.1cm) LVDd 4.2 cm PWd 1.0 (0.7-1.1cm) IVSs 1.4 (0.8-1.2cm) LVDs 2.8 (2.5-4.0cm) PWs 1.6 (0.8-1.2cm) LVOT Diameter 2.18 (1.8-2.4cm) LVEF(%) 62.8 (>50%) Ao Asc Diam.3.52 cm IVC 15.95 mmFS (%) 33.6 % SV 49.3 ml CO 3.9 L/min M-Mode Dimensions Left Atrium(MM) 3.43 (2.5-4.0cm) Aortic Root 3.02 (2.2-3.7cm) Aortic Cusp Exc 2.16 (1.5-2.0cm) MV EPSS 1.0 (<0.5cm) Aortic Valve AoV Peak Archie. 153.8 cm/s AoV VTI 27.5 cm AO Peak GR. 9.5 mmHg AO Mean GR. 5 mmHg LVOT VTI 20.30 cm LVOT Peak Archie. 114.4 cm/s FRANKY(VTI)/BSA 2.75 cm2/m2 FRANKY (VTI) 2.75 cm2 Mitral Valve MV E Velocity 57.4 cm/s MV Peak Gr. 2 mmHg MV DECEL TIME 284 ms MV A Velocity 99.5 cm/s MV PHT 76 ms E/A Ratio 0.6 MVA (PHT) 2.89 cm2 MV VMax74.9 cm/s TDI Lateral E' P. V8.29 cm/s E/Lateral E' 6.9 Tricuspid Valve TR P. Velocity 215 cm/s RAP ESTIMATE 10 mmHg TR Peak Gr. 18 mmHg RVSP 28 mmHg LEFT VENTRICLE The left ventricle is normal size with mild proximal septal thickening. Overall systolic function is normal. Overall LVEF is about 65-70% RIGHT VENTRICLE RV is normal size and function. ATRIA The left atrium size is normal. AORTIC VALVE Trileaflet AV appears mildly sclerotic without stenosis. Trace insufficiency. MITRAL VALVE Mild mitral annular calcification without stenosis. Trace regurgitation. TRICUSPID VALVE The tricuspid valve is normal in structure with trace regurgitation. PULMONIC VALVE The pulmonary valve is normal in structure without insufficiency. GREAT VESSELS The aortic root is normal in size. The ascending aorta is normal in size. The IVC is normal in size a nd collapses >50% with inspiration. PERICARDIUM Normal pericardium. No effusion. Other Information Study Quality: Adequate Conclusion The left ventricle is normal size with mild proximal septal thickening. Overall systolic function is normal. Overall LVEF is about 65-70% RV is normal size and function. Trileaflet AV appears mildly sclerotic without stenosis. Trace insufficiency. Mild mitral annular calcification without stenosis. Trace regurgitation. The tricuspid valve is normal in structure with trace regurgitation. The pulmonary valve is normal in structure without insufficiency. Normal pericardium. No effusion.
[2024-09-09] MEDS: HYDROcodone/acetaminophen 5mg/325mg tablet PO PRN (21:20)
[2024-09-10] VITALS (12 sets, daily range): BP systolic 78–157; BP diastolic 49–106; PULSE 78–110; RESP 15–22; TEMP 97.4–98.9; O2SAT 92–96
[2024-09-10 06:10] LABS: MEAN PLATELET VOLUME 7.2 FL (7.4-10.4); RED CELL DISTRIBUTION WIDTH 13.6 % (11.5-14.5)
[2024-09-10 06:28] LABS: CREATININE 0.97 MG/DL (0.40-0.90); PHOSPHORUS 3.8 MG/DL (2.3-4.5); TOTAL CARBON DIOXIDE 23.4 MMOL/L (24-32); eCRCL 69 ML/MIN; eGFR 61 ML/MIN
[2024-09-10] MEDS: midodrine 5mg tablet PO ONE (07:00)
[2024-09-10] MEDS ORDERED: magnesium sulf-water 2g/50mL 50 ML IV PRN (07:05)
[2024-09-10] MEDS ORDERED: potassium Cl 20 mEq SR tablet PO PRN (07:05)
[2024-09-10] MEDS ORDERED: potassium Cl 40MEQ/1/2NS 520ml 520 ML IV PRN (07:05)
[2024-09-10] MEDS ORDERED: magnesium Cl slow-release 64mg tablet PO PRN (07:05)
[2024-09-10] MEDS ORDERED: magnesium sulf-water 4G/100mL 100 ML IV PRN (07:05)
[2024-09-10] MEDS: potassium Cl 20 mEq SR tablet PO PRN (07:34)
[2024-09-10] MEDS: K and/or MAG REPLACEMENT MC SCH (08:11)
--- NOTE | 2024-09-10 14:33 | PROGRESS NOTE- Residence ---
Progress Note - Resident Providers to CC Resident Creating Document: ELVIRA JUÁREZ RES ~ Antibiotic Timeout Antibiotic Ordered?: Yes Subjective Patient was seen and examined bedside, patient had no new complaints except fatigue. Objective Vital Signs Date Time Temp Pulse Resp B/P (MAP) Pulse Ox O2 Delivery O2 Flow Rate FiO2 09/10/24 13:02 22 09/10/24 12:56 98.9 101 155/96 (115) 93 Room Air Awake , alert, and oriented x4, resting comfortably in the bed, in no acute distress HEENT: Atraumatic, normocephalic, EOMI, anicteric sclera ; pink conjunctiva Neck: Trachea midline. Supple, full range of motion, no JVD Cardiac: Regular rhythm, regular rate with no murmurs all over the precordium. Respiratory: Equal breath sounds bilaterally, no tachypnea, no wheezing ,rub or rales, Chest wall is symmetric and without deformity. Gastrointestinal: Abdomen symmetric, non-distended, soft, non-tender, normal bowel sounds x4 quadrant, normoactive, no hepatosplenomegaly Musculoskeletal: No pedal edema, no cyanosis elt Neurological: Speech is clear, alert, and oriented x 4. No motor or sensory deficit, deep tendon reflexes normal, cerebellar intact. Cranial nerves II-XII intact. Skin: Warm and dry Result Diagram: 09/10/24 0535 09/10/24 0535 Coagulation Studies Laboratory Tests Test 09/06/24 21:10 09/07/24 15:45 09/08/24 06:06 Prothrombin Time 11.2 SECONDS (9.0-12.0) INR International Normalized Ratio 1.1 INR Activated Partial Thromboplast Time > 139 SECONDS (22-32) *H APTT (Heparin Protocol) 26 SECONDS (45-60) L Coagulation Comments Assessment Assessment This is a 48-year-old female with a history of fibromyalgia, PTSD, irritable bowel syndrome transfered from [facility] for further management of NSTEMI. Plan Plan 1. NSTEMI (ELIZABETH score 3) Chest pain HEART Score: Total: 4 = Moderate risk Retrosternal chest pain radiating to back, cramping in nature, /10 intensity Troponins: Initial 944 now trending down in 500s EKG: No ST/T wave changes noted On heparin drip, aspirin 81 mg daily, atorvastatin 80 mg initiated, metoprolol succinate 25 mg daily Plan: Lexiscan was done which showed stress-induced ischemia, reversible defect Heparin drip has been discontinued Patient has no symptoms of chest pain today. Echocardiogram reports the left ventricle is normal in size with mild proximal septal thickening and overall systolic function was normal LVF is about 65-70% Cardiology were consulted and Dr. Malin suggested that the patient does not require any surgical intervention right now and suggested medical management 2. Acute Kidney Injury probably prerenal, vasomotor nephropathy Creatinine: 2.27 mg/dL (baseline unknown), creatinine trended down to 0.97 Likely pre-renal due to dehydration from vomiting and diarrhea No known CKD, but further evaluation pending Urine osmolality, serum osmolality, urine Na, and urine urea ordered,pending Renal ultrasound unremarkable Plan: DC the fluids today. Monitor creatinine, BUN, and urine output Hold nephrotoxics Monitor for response with labs 3. Hypertension New Onset, uncontrolled ED BP: 182/110 mmHg now 145/90 mmHg Started on Metoprolol Succinate 25 mg PO daily Evaluate for secondary hypertension if persistent after stabilization 09/09/2024: Patient had complaints of headaches and increasing blood pressure to 180s, initiated on hydralazine 10mg p.r.n. Blood pressure was controlled for a while and again continue to increase, the blood pressure right now is 153/70mmhg,starting the patient on amlodipine 10mg today 09/10/2024 patient continues to have elevated levels of hypertension However she had one episode of hypotension last night to about 83/50mmhg, h ypertensive medication was stopped patient was initiated on midodrine. Patient continues to have increasing blood pressure, I have increased her metoprolol dose to 50 mg once a day and amlodipine 10 mg 4. Urinary Tract Infection Uncomplicated UA: +Leukocyte esterase, WBC 3050, Glucose 250 (likely spillover from transient hyperglycemia), Ketones +, Nitrates WBC: 13.5 Patient is on Ceftriaxone 1 g IV q24h Urine culture grew E coli which is sensitive to ceftriaxone 5. Hypokalemia (Mild) Potassium 3.1 on admission Likely secondary to vomiting and volume depletion Plan: Patient's potassium is 3.6today Potassium chloride replacement per protocol if needed 09/10/2024 Patient's potassium is at three today and potassium replacement protocol was started 6. Neuropsychiatric History Known PTSD and migraine history, followed by psychologist and neurology [employer] No active suicidal ideation or hallucinations reported No current migraine episode noted Plan: Continue outpatient follow-up with psychiatry and neurology Monitor for anxiety-related somatic symptoms that could overlap with cardiac presentation Offer psychosocial support and consider anxiety screen if needed 7. Hyperlipidemia LDL 121, triglycerides 189 Initiated atorvastatin 80 mg. 8. Substance use disorder Positive for marijuana use, substance abuse navigator consulted Code Status: Full code DVT Prophylaxis: Heparin drip Line/tubes: P IV Nutrition: Heart healthy diet PT: Ordered Prognosis: Guarded Disposition: Consulted Dr. aMlin,he does not want to do any surgical intervention right now and and suggested medical management. Possible discharge today or tomorrow Dr.Jahnavi Ericka MD Internal Medicine Resident, PGY-1 Date of Service: Sep 10, 2024 Billing Provider: JESSE AVALOS MD, JAHNAVI, RES Sep 10, 2024 14:33
[2024-09-11] VITALS (9 sets, daily range): BP systolic 87–162; BP diastolic 48–107; PULSE 86–104; RESP 14–19; TEMP 97.5–98.2; O2SAT 93–96
[2024-09-11 06:16] LABS: MEAN PLATELET VOLUME 7.3 FL (7.4-10.4); RED CELL DISTRIBUTION WIDTH 13.8 % (11.5-14.5)
[2024-09-11 06:51] LABS: CREATININE 1.23 MG/DL (0.40-0.90); PHOSPHORUS 4.3 MG/DL (2.3-4.5); TOTAL CARBON DIOXIDE 25.0 MMOL/L (24-32); eCRCL 54 ML/MIN; eGFR 47 ML/MIN
[2024-09-11 08:24] LABS: OSMOLALITY 276 MOSM/K (280-300)
[2024-09-11 08:40] LABS: PRO BRAIN NATRIURETIC PEPTIDE 140 PG/ML (0-125)
[2024-09-11] MEDS: metoprolol succinate 25mg (24-HOUR) SR. Tablet PO SCH (09:10)
[2024-09-11] MEDS: normal saline 500ml IV soln 500 ML IV ONE (09:23)
[2024-09-11] MEDS ORDERED: ATOR20TA66 PO (16:13)
[2024-09-11] MEDS ORDERED: AMLO5TAB16 PO (16:13)
[2024-09-11] MEDS ORDERED: METO-395 PO (16:13)
[2024-09-11] MEDS ORDERED: ASPI-1265 PO (16:13)
--- NOTE | 2024-09-11 16:24 | DISCHARGE SUMMARY-Residence ---
Discharge Summary Providers to CC Resident Creating Document: LUCRETIA CARRANZAJAMEEL, RES ~ Discharge Summary Admission Diagnosis: ELEVATED TROPS, MATT Hospital Course DATE OF ADMISSION: 09/06/2024 DATE OF DISCHARGE: 09/11/2024 Discharge Diagnosis\Comment: NSTEMI (ELIZABETH score 3) Chest pain HEART Score: Total: 4 = Moderate risk Acute Kidney Injury probably prerenal, vasomotor nephropathy Hypertension New Onset, uncontrolled Urinary Tract Infection Uncomplicated Hypokalemia (Mild) Neuropsychiatric History Hyperlipidemia Substance use disorder Operations\Procedures: None Consultants: Cardiology: Dr. Malin Complications: None Condition on DC: Stable New Medications: Amlodipine Besylate (Amlodipine Besylate) 5 Mg Tablet 1 TAB PO DAILY for 30 Days, #30 TAB 0 Refills Aspirin (Aspirin) 81 Mg Tab.chew 1 TAB PO DAILY for 30 Days, #30 TAB.CHEW Atorvastatin Calcium (Atorvastatin Calcium) 20 Mg Tablet 80 MG PO DAILY for 30 Days, #120 TAB Lactobacillus Rhamnosus (Culturelle) 10 Billion Cell Capsule 1 CAP PO BID for 30 Days, #60 CAP 0 Refills Metoprolol Succinate (Metoprolol Succinate) 25 Mg Tab.sr.24h 1 TAB PO DAILY for 30 Days, #30 TAB 0 Refills Continued Medications: Diazepam (Diazepam) 10 Mg Tablet 1 TAB PO QHS, TAB Gabapentin (Neurontin) 300 Mg Capsule 1 CAP PO Q8H, CAP Hyoscyamine Sulfate (Hyoscyamine Sulfate) 0.125 Mg Tab.rapdis 2-Chaz TAB PO Q4H, TAB 0 Refills Ibuprofen* (Motrin*) 400 Mg Tablet 1 TAB PO for 5 Days, #20 TAB Omeprazole Magnesium (Prilosec Otc) 20 Mg Tablet.dr 40 MG PO DAILY, TAB 0 Refills Potassium Chloride* (Potassium Chloride*) 10 Meq Capsule.sa 1 CAP PO DAILY, CAP Prazosin Hcl (Minipress) 5 Mg Capsule 6 MG PO HS, CAP Tizanidine Hcl (Zanaflex) 4 Mg Capsule 1 CAP PO QHS, CAP 0 Refills Topiramate (Topiramate) 25 Mg Tablet 1 TAB PO TID, TAB 0 Refills Trazodone HCl (Trazodone HCl) 300 Mg Tablet 1 TAB PO HS, TAB Discharge Summary: HPI: 48-year-old female with a history of fibromyalgia, PTSD, irritable bowel syndrome his transfers from [facility] for further management of NSTEMI. She complains of nausea and vomiting since Wednesday. She is unable to keep anything down due to the vomiting. Also has associated chest pain, diarrhea, chills, dizziness, palpitations since earlier today. Retrosternal chest pain radiating to the entire chest, and her back. Cramping type of pain 7/10 in intensity. States nausea and vomiting better now. Stopped smoking three years ago and last drink was in March 2024. Uses edibles for fibromyalgia pain. Lives with her boyfriend in [place]. Follows up with PCP Dr. Potter, psychologist and [facility] neurology [employer] for her migraines. Discussed advanced care directives and she wishes to be a full code. Hospital course: 48-year-old female patient came to the hospital transferred from [facility] for further management of STEMI. The patient was having some nausea and vomiting currently resolved. The patient endorsed retrosternal chest pain which radiated to the entire chest and back. Troponin levels were obtained with were elevated initially around 900s trended down to 500s. Lexiscan was obtained which showed Perfusion defect involving the basal inferoseptal and basal inferior segments as described above, possible stress-induced ischemia. Abnormal TID ratio of 1.41 suggesting transient ischemic dilatation. Left ventricular ejection fraction is 73%. Echocardiogram showed LVEF of 65-70% with RVSP 28 mmHg. Cardiology was consulted who recommended medical management based on metoprolol, atorvastatin and aspirin. LDL 121, started on atorvastatin 80 mg daily, due to new onset of hypertension the patient was managed with a amlodipine 5 mg and metoprolol succinate 25 mg daily. Upon the following days the patient reports significant improvement of chest pain, the patient is eager to be discharged home. Cardiology Dr. Malin evaluated the patient who recommends that the patient can be discharged home with medical management based on metoprolol, atorvastatin and aspirin. The patient remained hemodynamically stable. The patient will be discharged home. Discharge course: The patient remained hemodynamically stable. The patient will be discharged with the following instructions: Come back to the emergency department or call 911 if severe chest pain, shortne ss of breath, palpitations, fever sensation is evidenced. Take amlodipine one tablet of 5 mg daily. Take aspirin one tablet of 81 mg daily. Take atorvastatin four tablets of 20 mg total 80 mg daily. Take metoprolol succinate 25 mg daily. Continue your home medication. Physical exam: General: Well alert, well oriented, not confused, not agitated, not in acute distress, well cooperated during the physical. HEENT: Conjunctive are pink, sclerae clear, no icterus, pupil is equal in both sides, reactive to light, no ear discharge, no pharyngeal erythema or an edema. Neck: Supple, no JVD, no lymphadenopathy and thyromegaly. Chest: Equal air entry on both lungs, no additional sounds no rhonchi no wheezing at the moment. Cardiovascular: S1-S2 regular sinus rhythm and, regular rate, no gallops, no rubs, no murmurs Abdomen: No visible peristalsis, Bowel sounds present on auscultation, soft, nontender, no guarding, no rigidity Extremities: No obvious deformities, no pitting edema bilaterally, capillary refill intact, peripheral pulsations are intact on both sides Central Nervous System: No focal neurological deficits, no motor or sensory weakness in all 4 extremities, could move all 4 extremities, 2+ deep tendon reflexes, negative Babinski. Musculoskeletal: No joint swelling, deformities, inflammations, and no scoliosis and back tenderness Skin: Warm and dry. Vital Signs Date Time Temp Pulse Resp B/P (MAP) Pulse Ox O2 Delivery O2 Flow Rate FiO2 09/11/24 15:38 18 09/11/24 11:00 98.2 104 148/94 (112) 95 Room Air Laboratory Tests Test 09/10/24 05:35 09/10/24 15:32 09/11/24 05:47 09/11/24 10:44 White Blood Count 7.8 X10'3 7.6 X10'3 Red Blood Count 4.42 X10'6 4.66 X10'6 Hemoglobin 12.5 g/dl 13.2 g/dl Hematocrit 35.8 % 38.4 % Mean Corpuscular Volume 80.9 FL 82.3 FL Mean Corpuscular Hemoglobin 28.4 PG 28.3 PG Mean Corpuscular Hemoglobin Concent 35.1 g/dL 34.4 g/dL Red Cell Distribution Width 13.6 % 13.8 % Platelet Count 284 X10'3 258 X10'3 Mean Platelet Volume 7.2 FL 7.3 FL Neutrophils (%) (Auto) 43.3 % 43.0 % Lymphocytes (%) (Auto) 46.1 % 47.5 % Monocytes (%) (Auto) 8.4 % 7.2 % Eosinophils (%) (Auto) 2.0 % 2.0 % Basophils (%) (Auto) 0.2 % 0.3 % Neutrophils # (Auto) 3.4 X10'3 3.3 X10'3 Lymphocytes # (Auto) 3.6 X10'3 3.6 X10'3 Monocytes # (Auto) 0.7 X10'3 0.5 X10'3 Eosinophils # (Auto) 0.2 X10'3 0.2 X10'3 Basophils # (Auto) 0.0 X10'3 0.0 X10'3 CBC Comment Sodium Level 130 MMOL/L 132 MMOL/L Potassium Level 3.0 MMOL/L 3.4 MMOL/L 3.1 MMOL/L 3.0 MMOL/L Chloride Level 99 MMOL/L 97 MMOL/L Carbon Dioxide Level 23.4 MMOL/L 25.0 MMOL/L Anion Gap 8 10 Blood Urea Nitrogen 19 MG/DL 18 MG/DL Creatinine 0.97 MG/DL 1.23 MG/DL Estimated GFR/1.73 m2 61 ML/MIN 47 ML/MIN BUN/Creatinine Ratio 19.6 14.6 Glucose Level 106 MG/DL 121 MG/DL Calcium Level 8.9 MG/DL 9.2 MG/DL Phosphorus Level 3.8 MG/DL 4.3 MG/DL Magnesium Level 1.9 MG/DL 1.9 MG/DL Total Bilirubin 0.5 MG/DL 0.5 MG/DL Aspartate Amino Transf (AST/SGOT) 8 U/L 11 U/L Alanine Aminotransferase (ALT/SGPT) 15 U/L 17 U/L Alkaline Phosphatase 55 IU/L 63 IU/L Total Protein 5.9 G/DL 6.3 G/DL Albumin 3.2 G/DL 3.5 G/DL Globulin 2.7 G/DL 2.8 G/DL Albumin/Globulin Ratio 1.2 1.3 Chemistry Comments Osmolality 276 MOSM/K Pro-B-Type Natriuretic Peptide 140 PG/ML *Problems/Diagnosis: (1) Dyslipidemia Status: Acute (2) NSTEMI (non-ST elevated myocardial infarction) Status: Acute (3) Acute kidney injury Status: Acute (4) Uncontrolled hypertension Status: Acute Total Time Spent on D/C: > 30 Minutes Date of Service: Sep 11, 2024 Billing Provider: JESSE AVALOS MD, FRANCO LUIS, RES Sep 11, 2024 16:23
[2024-09-11] MEDS ORDERED: LACT1CAP26 PO (16:26)
[2024-09-11] MEDS: potassium Cl 20 mEq SR tablet PO STA (16:34)
[2024-09-11] MEDS ORDERED: ONDA-103 PO (16:48)
--- NOTE | 2024-09-11 18:11 | CONSULTATION REPORT ---
History of Present Illness Providers to CC CC: ELVA MALIN MD ~ Reason for Admit\Admit Dx: Cardiology consultation History of Present Illness This is a 48-year-old female who presented through the hospital secondary to nausea and vomiting. She developed chest pain that was associated with cough and vomiting. She was found to have elevated troponins and cardiology consultation was obtained with the on-call cotton roll packer who was Dr. Fraser of the time. Recommended further cardiac testing. Underwent echocardiogram that demonstrated preserved LVEF. Echo with possible small prefers Kim defect and questionable stress-induced ischemia. Stress test was reviewed by the on-call cotton roll packer today Dr. Katrin Malin. Possible small area of reversibility. Allergies: Coded Allergies: niacin (Unverified Allergy, Severe, THROAT CLOSES, 05/15/19) indomethacin (Unverified Adverse Reaction, Intermediate, MIGRAINE, 05/15/19) Home Medications Home Medications Active Ondansetron HCl 4 Mg Tablet 1 Tab PO Q4HPRN PRN 3 Days Culturelle (Lactobacillus Rhamnosus) 10 Billion Cell Capsule 1 Cap PO BID 30 Days Amlodipine Besylate 5 Mg Tablet 1 Tab PO DAILY 30 Days Metoprolol Succinate 25 Mg Tab.sr.24h 1 Tab PO DAILY 30 Days Atorvastatin Calcium 20 Mg Tablet 80 Mg PO DAILY 30 Days Aspirin 81 Mg Tab.chew 1 Tab PO DAILY 30 Days Reported Motrin* (Ibuprofen) 400 Mg Tablet 1 Tab PO 5 Days Zanaflex (Tizanidine HCl) 4 Mg Capsule 1 Cap PO QHS Diazepam 10 Mg Tablet 1 Tab PO QHS Potassium Chloride* (Potassium Chloride) 10 Meq Capsule.sa 1 Cap PO DAILY Trazodone HCl 300 Mg Tablet 1 Tab PO HS Minipress (Prazosin Hcl) 5 Mg Capsule 6 Mg PO HS Prilosec Otc (Omeprazole Magnesium) 20 Mg Tablet.dr 40 Mg PO DAILY Topiramate 25 Mg Tablet 1 Tab PO TID Neurontin (Gabapentin) 300 Mg Capsule 1 Cap PO Q8H Hyoscyamine Sulfate 0.125 Mg Tab.rapdis 2-Chaz Tab PO Q4H Past Medical History Medical History Comment Fibromyalgia Hypertension Irritable bowel syndrome PTSD Past Surgical History Surgical History Comment Hysterectomy Past Family History Family History Comment Father had an IL at age 51 Mother had an IL. Both parents are alive. Physical Exam Last Vital Signs Recorded: RN Vital Signs have been reviewed: Yes, Temperature: 98.2, Source: Oral, Heart Rate: 95, Respiratory Rate: 18, BP: 162/94, Pulse Oximetry: 95, Weight: 93.180 Physical Exam General: Awake, alert, oriented. No apparent distress Neck: Supple. Normal range of motion. No JVD Respiratory: Lungs are clear to auscultation bilaterally. No respiratory distress. Chest: Normal shape and size. No accessory muscle use. Cardiovascular: Regular rate and rhythm. S1-S2. No murmur, gallop, rub. Gastrointestinal: Abdomen is soft. Nontender to palpation. Bowel sounds present. Extremities: No lower extremity edema, cyanosis or clubbing. Neurologic: Alert and oriented x4. Nonfocal Psychiatric: Normal mood and affect. Skin: Normal color. Warm and dry. Review of Systems ROS Review of systems negative except specifically documented in HPI. Results Diagram Lab Result Diagram: 09/11/24 0547 09/11/24 1044 Assessment/Plan Additional Plan NSTEMI High sensitivity troponins 944, 716, 668, 536 This may represent an IL type 2 given lack of chest pain. Normal echocardiogram. Recommend medical management. Patient was educated that if she develops chest pain or pressure to follow up with her primary care versus coming to the hospital. She follows at the [facility] in [place]. Recommended that they refer her for follow-up with Dr. Katrin Malin at the [facility]. Nausea, vomiting Patient continues to have symptoms. --management per her primary team Hypertension Suspect an element of situational hypertension. Recommend home monitoring. Hypokalemia --replacement per protocol Case discussed with Dr. Katrin Malin. In agreement with medical management as above. Aspirin 81 mg daily, beta-blockers, statin to keep cholesterol well controlled. Supervising MD Supervising Physician: MICHELLE Cedillo NP Sep 11, 2024 18:11
== END 2024-09-11 18:53 | disposition home or self-care (01) | DRG 190 ==
LOC: ER 20:22 → ED HOLD 21:55 → PCU 3S 09-07 03:50
PROVIDERS: ADMIT Internal Medicine; ATTEND Family Medicine
PROC: 4A02XM4 Measurement of Cardiac Total Activity, External Approach (ICD-10-PCS; principal; 2024-09-08)
PROC: 3E033HZ Introduction of Radioactive Substance into Peripheral Vein, Percutaneous Approach (ICD-10-PCS; 2024-09-08)
DX: I21.4 Non-ST elevation (NSTEMI) myocardial infarction (principal); N17.0 Acute kidney failure with tubular necrosis; E86.0 Dehydration; E78.5 Hyperlipidemia, unspecified; E87.6 Hypokalemia; N39.0 Urinary tract infection, site not specified; F43.10 Post-traumatic stress disorder, unspecified; I10 Essential (primary) hypertension; K58.9 Irritable bowel syndrome, unspecified; F32.A Depression, unspecified; G43.909 Migraine, unspecified, not intractable, without status migrainosus; B96.20 Unspecified Escherichia coli [E. coli] as the cause of diseases classified elsewhere; Z79.82 Long term (current) use of aspirin; Z82.49 Family history of ischemic heart disease and other diseases of the circulatory system; Z90.710 Acquired absence of both cervix and uterus; Z88.8 Allergy status to other drugs, medicaments and biological substances
CPT/HCPCS: 36415; 36600; 71045; 76770; 78452; 80048; 80053; 80061; 80305; 81001; 82803; 82948; 83036; 83605; 83735; 83880; 83930; 84100; 84132; 84145; 84443; 84484; 84703; 85018; 85025; 85610; 85730; 87040; 87077; 87081; 87088; 87186; 93005; 93017; 93306; 94799; 96365; 96375; 99291; A4615; A9500; G0378; J0280; J0360; J0696; J1644; J2060; J2270; J2405; J2785; J7030; J7040; J7120